=== PATIENT | male | born 1950 | race Caucasian/White ===

== ENCOUNTER 2017-11-14 09:32 | Emergency (ER) | payer MEDICARE, BC ==
[2017-11-14 09:59] VITALS: BP 157/98
[2017-11-14] MEDS ORDERED: Bacitracin Oint 1 GM U/D Packet TOP ONE (10:02)
[2017-11-14] MEDS ORDERED: Lidocaine 1% 30 ML SDV INJECT ONE (10:02)
--- NOTE | 2017-11-14 10:08 | EDM.PDOC ---
ED HPI GENERAL MEDICAL PROBLEM - General Chief Complaint: Skin Complaint Stated Complaint: [id number] FELL ON SIDEWALK CUT ON FOREHEAD Time Seen by Provider: 11/14/17 09:58 Source of Information: Reports: Patient History Limitations: Reports: No Limitations - History of Present Illness INITIAL COMMENTS - FREE TEXT/NARRATIVE: This 67 yo male patient reports to the ED due to a ground level fall. The patient reports that he was walking in the back yard when he caught his foot on uneven ground causing him to fall. The patient reports, as he was falling, he was trying to avoid a pipe sticking up in his yard and landed on his face. The patient reports that he is hard of hearing and forgot his hearing aids at home. The patient reports no loss of consciousness before, during or after the fall. The patient reports some neck "stiffness", but has been moving around without problems. Onset: Today Duration: Minutes: Location: Reports: Face (laceration for left forehead, abrasions to his nose, chin and forehead. ) Quality: Reports: Ache, Dull Severity: Mild Improves with: Reports: None Worsens with: Reports: None Context: Reports: Trauma (ground level fall) Associated Symptoms: Reports: No Other Symptoms Left Face Pain Score (Numeric/FACES): 4 - Related Data Allergies Allergy/AdvReac Type Severity Reaction Status Date / Time ciprofloxacin Allergy Facial Verified 06/21/15 10:23 Swelling Home Meds: Home Meds Loratadine [Claritin] 10 mg PO DAILY PRN 03/29/14 [History] Lisinopril/Hydrochlorothiazide [Lisinopril-Hctz 20-12.5 mg Tab] 1 tab PO DAILY 08/25/14 [History] Past Medical History - Past Health History Medical/Surgical History: Denies Medical/Surgical History (unable to obtain) Social & Family History - Family History Family Medical History: Unobtainable - Tobacco Use Smoking Status *Q: Never Smoker Second Hand Smoke Exposure: No - Alcohol Use Days Per Week of Alcohol Use: 1 Number of Drinks Per Day: 1 Total Drinks Per Week: 1 - Recreational Drug Use Recreational Drug Use: No ED ROS GENERAL - Review of Systems Review Of Systems: ROS reveals no pertinent complaints other than HPI. ED EXAM, SKIN/RASH Exam: See Below Exam Limited By: No Limitations General Appearance: Alert, WD/WN, Mild Distress Eye Exam: Bilateral Eye: EOMI, Normal Inspection, PERRL Ears: Normal External Exam, Normal Canal, Hearing Grossly Normal, Normal TMs Nose: Normal Inspection, Normal Mucosa, No Blood Throat/Mouth: Normal Inspection, Normal Lips, Normal Teeth, Normal Gums, Normal Oropharynx, Normal Voice, No Airway Compromise Neck: Normal Inspection, Supple, Full Range of Motion, Tender Lateral (mild tenderness ) Respiratory/Chest: No Respiratory Distress, Lungs Clear, Normal Breath Sounds, No Accessory Muscle Use, Chest Non-Tender Cardiovascular: Normal Peripheral Pulses, Regular Rate, Rhythm, No Edema, No Gallop, No JVD, No Murmur, No Rub GI/Abdominal: Normal Bowel Sounds (Male) Exam: Deferred Rectal (Males) Exam: Deferred Back Exam: Normal Inspection, Full Range of Motion, NT Extremities: Normal Inspection, Normal Range of Motion, Non-Tender, No Pedal Edema, Normal Capillary Refill Neurological: Alert, Oriented, CN II-XII Intact, Normal Cognition, Normal Gait, Normal Reflexes, No Motor/Sensory Deficits Psychiatric: Normal Affect, Normal Mood Skin: Warm, Dry, Wound/Incision (laceration to left forehead) Location, Skin: Head Characteristics: Linear Lymphatic: No Adenopathy ED SKIN PROCEDURES - Laceration/Wound Repair Left Head Lac/Wound length In cm: 2.5 Appearance: Subcutaneous Distal NVT: Neuro & Vascular Intact Anesthetic Type: Local Local Anesthesia - Lidocaine (Xylocaine): 1% Plain Local Anesthetic Volume: 3cc Skin Prep: Chlorhexidine (Hibiciens), Saline Exploration/Debridement/Repair: Wound Explored, In a Bloodless Field, No Foreign Material Found Closed with: Sutures Suture Size: other (5-0) # of Sutures: 8 Suture Type: Prolene, Interrupted, Simple Sterile Dressing Applied: Nurse Tetanus Status Addressed: Yes Complications: No Course - Vital Signs Last Recorded V/S: Last Vital Signs Temp 36.9 C 11/14/17 09:58 Pulse 65 11/14/17 09:58 Resp 16 11/14/17 09:58 BP 157/98 H 11/14/17 09:58 Pulse Ox 99 11/14/17 09:58 - Orders/Labs/Meds Meds: Medications Discontinued Medications Generic Name Dose Route Start Last Admin Trade Name Freq PRN Reason Stop Dose Admin Bacitracin 1 dose 11/14/17 10:02 Bacitracin Oint 1 Gm TOP 11/14/17 10:03 ONETIME ONE Lidocaine HCl 30 ml 11/14/17 10:02 Xylocaine-Mpf 1% INJECT 11/14/17 10:03 ONETIME ONE Departure - Departure Time of Disposition: 10:32 Disposition: Home, Self-Care 01 Condition: Fair Clinical Impression: Fall from ground level Laceration of forehead Qualifiers: Encounter type: initial encounter Qualified Code(s): S01.81XA - Laceration without foreign body of other part of head, initial encounter - Discharge Information Instructions: Facial Laceration, [id number] Forms: ED Department Discharge Care Plan Goals: The patient was advised of the examination results during the visit. The laceration margins were well approximated during the visit without incident. The patient's remaining wounds were cleaned. The patient should have the sutures removed in 5-7 days. The patient was encouraged to keep the area clean and dry over the next 24 hours. If the patient has any additional symptoms or concerns, the patient should follow-up with his primary care facility or return to the emergency department.
== END 2017-11-14 10:48 | disposition home or self-care (01) ==
LOC: DL.ED 09:32
DX: S01.81XA Laceration without foreign body of other part of head, initial encounter (principal); Z88.1 Allergy status to other antibiotic agents; Z79.899 Other long term (current) drug therapy; W19.XXXA Unspecified fall, initial encounter; Y92.096 Garden or yard of other non-institutional residence as the place of occurrence of the external cause
CPT/HCPCS: 12001; 12011; 99282; 99283

== ENCOUNTER 2020-07-13 09:26 | Emergency (ER) | payer OTHER, MEDICARE, BC ==
[2020-07-13 09:56] VITALS: BP 108/97; PULSE 92
--- NOTE | 2020-07-13 10:48 | CR ---
PROCEDURE INFORMATION: Exam: XR Left Tibia and Fibula Exam date and time: 07/13/2020 10:19 AM Age: 70 years old Clinical indication: Pain; Lower leg; Left; Additional info: Pain and redness TECHNIQUE: Imaging protocol: XR Left tibia and fibula. Views: 2 views. COMPARISON: No relevant prior studies available. FINDINGS: Bones/joints: There is anatomic alignment. There is no acute fracture or dislocation. Mild chronic cortical thickening fibular midshaft and proximal posterior tibial diaphyseal cortex. No focal osseous abnormality. No aggressive osseous process. Joint spaces are preserved. Soft tissues: Lateral subcutaneous edema may represent cellulitis. IMPRESSION: No acute osseous abnormality.
--- NOTE | 2020-07-13 10:52 | EDM.PDOC ---
ED HPI GENERAL MEDICAL PROBLEM - General Chief Complaint: Lower Extremity Injury/Pain Stated Complaint: LEFT LEG INJURY REFERRED BY [facility] Time Seen by Provider: 07/13/20 10:40 Source of Information: Reports: Patient History Limitations: Reports: No Limitations - History of Present Illness INITIAL COMMENTS - FREE TEXT/NARRATIVE: This 70 yo male patient was sent to the ED from the [facility] due to left lateral lower leg pain. The patient reports he missed a step about 1 week ago and has been having increased pain to the lateral lower leg since that time. The patient reports increased swelling as the day progresses and increased stiffness in the morning. Duration: Week(s):, Intermittent Location: Reports: Lower Extremity, Left Quality: Reports: Ache, Dull Severity: Moderate Improves with: Reports: None Worsens with: Reports: None Context: Reports: Activity Associated Symptoms: Reports: No Other Symptoms Left Leg Pain Score (Numeric/FACES): 3 - Related Data Allergies Allergy/AdvReac Type Severity Reaction Status Date / Time ciprofloxacin Allergy Facial Verified 07/13/20 09:55 Swelling Home Meds: Home Meds Loratadine [Claritin] 10 mg PO DAILY PRN 03/29/14 [History] Lisinopril/Hydrochlorothiazide [Lisinopril-Hctz 20-12.5 mg Tab] 1 tab PO DAILY 08/25/14 [History] Past Medical History - Past Health History Medical/Surgical History: Denies Medical/Surgical History HEENT History: Reports: Impaired Vision Cardiovascular History: Reports: Hypertension Genitourinary History: Reports: Prostate Disorder, Renal Calculus - Past Surgical History Respiratory Surgical History: Reports: Other (See Below) Other Respiratory Surgeries/Procedures: chesttubes for collapsed lung Social & Family History - Family History Family Medical History: Unobtainable - Tobacco Use Tobacco Use Status *Q: Former Tobacco User Used Tobacco, but Quit: Yes Month/Year Tobacco Last Used: 07/1969 - Caffeine Use Caffeine Use: Reports: Coffee - Recreational Drug Use Recreational Drug Use: No Review of Systems - Review of Systems Review Of Systems: Comprehensive ROS is negative, except as noted in HPI. ED EXAM, GENERAL - Physical Exam Exam: See Below Exam Limited By: No Limitations General Appearance: Alert, WD/WN, Mild Distress Eye Exam: Bilateral Eye: EOMI, Normal Inspection, PERRL Ears: Normal External Exam, Other (Bilateral hearing aids) Nose: Normal Inspection, Normal Mucosa, No Blood Throat/Mouth: Normal Inspection, Normal Lips, Normal Teeth, Normal Gums, Normal Oropharynx, Normal Voice, No Airway Compromise Head: Atraumatic, Normocephalic Neck: Normal Inspection, Supple, Non-Tender, Full Range of Motion Respiratory/Chest: No Respiratory Distress, Lungs Clear, Normal Breath Sounds, No Accessory Muscle Use, Chest Non-Tender Cardiovascular: Normal Peripheral Pulses, Regular Rate, Rhythm, No Edema, No Gallop, No JVD, No Murmur, No Rub (Male) Exam: Deferred Rectal (Males) Exam: Deferred Extremities: Leg Pain (left lower lateral leg pain with swelling (x-ray does not demonstrate a fracture)) Neurological: Alert Psychiatric: Normal Affect, Normal Mood Skin Exam: Warm, Dry, Intact, Normal Color, No Rash Lymphatic: No Adenopathy Course - Vital Signs Last Recorded V/S: Last Vital Signs Temp 36.2 C 07/13/20 09:53 Pulse 92 07/13/20 09:53 Resp 14 07/13/20 09:53 BP 108/97 H 07/13/20 09:53 Pulse Ox 98 07/13/20 09:53 - Orders/Labs/Meds Orders: Active Orders 24 hr Category Date Time Status Tibia Fibula Lt [CR] Urgent Exams 07/13/20 10:09 Taken Departure - Departure Time of Disposition: 10:50 Disposition: Home, Self-Care 01 Condition: Fair Clinical Impression: Left ankle strain Qualifiers: Encounter type: initial encounter Qualified Code(s): S96.912A - Strain of u nspecified muscle and tendon at ankle and foot level, left foot, initial encounter - Discharge Information *PRESCRIPTION DRUG MONITORING PROGRAM REVIEWED*: Not Applicable *COPY OF PRESCRIPTION DRUG MONITORING REPORT IN PATIENT ESTEE: Not Applicable Instructions: How to Use a Stirrup Ankle Brace, [id number], Ankle Sprain, [id number] Care Plan Goals: The patient was advised of the examination and x-ray results during the visit. The patient was placed in a stir-up ankle brace while in the ED. The patient was encouraged to rest and elevate his extremity over the next week. If the patient has any additional symptoms or concerns, the patient should either return to the emergency department or visit his primary care facility. Sepsis Event Note (ED) - Evaluation Sepsis Screening Result: No Definite Risk - Focused Exam Vital Signs: Vital Signs Temp Pulse Resp BP Pulse Ox 07/13/20 09:53 36.2 C 92 14 108/97 H 98 - My Orders Last 24 Hours: My Active Orders 07/13/20 10:09 Tibia Fibula Lt [CR] Urgent - Assessment/Plan Last 24 Hours: My Active Orders 07/13/20 10:09 Tibia Fibula Lt [CR] Urgent
== END 2020-07-13 11:11 | disposition home or self-care (01) ==
LOC: DL.ED 09:26
DX: S96.912A Strain of unspecified muscle and tendon at ankle and foot level, left foot, initial encounter (principal); I10 Essential (primary) hypertension; Z87.891 Personal history of nicotine dependence; Z79.899 Other long term (current) drug therapy; Z88.1 Allergy status to other antibiotic agents; X50.1XXA Overexertion from prolonged static or awkward postures, initial encounter
CPT/HCPCS: 73590-LT; 99283-25

== ENCOUNTER 2021-03-27 18:57 | Emergency (ER) | payer OTHER, MEDICARE, BC ==
[2021-03-27 19:15] VITALS: PULSE 75
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
[2021-03-27 19:44] VITALS: BP 146/94
[2021-03-27 19:45] LABS: ANION GAP 13.7 mEq/L (7-13)
--- NOTE | 2021-03-27 19:57 | CR ---
PROCEDURE INFORMATION: Exam: XR Chest Exam date and time: 03/27/2021 7:31 PM Age: 70 years old Clinical indication: Chest pain TECHNIQUE: Imaging protocol: XR of the chest. Views: 1 view. COMPARISON: No relevant prior studies available. FINDINGS: Lungs: Clear lungs. Pleural spaces: No pneumothorax. No sizable pleural effusion. Heart/Mediastinum: No cardiomegaly. Bones/joints: Multiple chronic healed rib fractures bilaterally. IMPRESSION: Clear lungs.
[2021-03-27] MEDS ORDERED: Iopamidol 612 MG/ML 100 ML Bottle IVPUSH ONE (20:26)
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
== END 2021-03-27 22:22 | disposition home or self-care (01) ==
LOC: DL.ED 18:57
DX: K80.20 Calculus of gallbladder without cholecystitis without obstruction (principal); I10 Essential (primary) hypertension; Z88.1 Allergy status to other antibiotic agents; Z79.899 Other long term (current) drug therapy
CPT/HCPCS: 36415; 71045; 71260; 74177; 80053; 82150; 83690; 83735; 84484; 85025; 85379; 85610; 93005; 99285-25; Q9967

== ENCOUNTER 2022-07-01 14:57 | Emergency (ER) | payer MEDICARE, BC, OTHER ==
[2022-07-01] MEDS ORDERED: Bacitracin Oint 1 GM U/D Packet TOP ONE (15:08)
[2022-07-01] MEDS ORDERED: Lidocaine 1% 10 ML MDV INJECT ONE (15:08)
[2022-07-01 15:10] VITALS: BP 189/102; PULSE 80
== END 2022-07-01 15:34 | disposition home or self-care (01) ==
LOC: DL.ED 14:57
DX: S61.211A Laceration without foreign body of left index finger without damage to nail, initial encounter (principal); I10 Essential (primary) hypertension; Z88.1 Allergy status to other antibiotic agents; Z79.82 Long term (current) use of aspirin; Z79.899 Other long term (current) drug therapy; W26.8XXA Contact with other sharp object(s), not elsewhere classified, initial encounter
CPT/HCPCS: 12001; 99282

== ENCOUNTER 2024-01-03 19:17 | Emergency (ER) | payer MEDICARE, BC, OTHER ==
[2024-01-03 22:03] VITALS: BP 132/78; PULSE 72
== END 2024-01-03 21:49 | disposition home or self-care (01) ==
LOC: DL.ED 19:17
DX: H10.9 Unspecified conjunctivitis (principal); I10 Essential (primary) hypertension; Z79.82 Long term (current) use of aspirin; Z79.899 Other long term (current) drug therapy; Z88.1 Allergy status to other antibiotic agents
CPT/HCPCS: 99283

== ENCOUNTER 2024-02-14 09:39 | Day surgery (SDC) | payer MEDICARE, BC ==
[2024-02-14] MEDS ORDERED: Acetaminophen 325 MG Tab PO PRN (09:45)
[2024-02-14] MEDS ORDERED: Acetaminophen/Codeine 300-30 MG Tab PO PRN (09:45)
[2024-02-14] MEDS ORDERED: Ondansetron 4 MG/2 ML SDV IVPUSH PRN (09:45)
[2024-02-14] MEDS: Povidone-Iodine 5% Sterile Ophth Soln 30 ML Bottle EYELF ONE ×3 (10:04→11:20)
[2024-02-14] MEDS: Phenylephrine 10% Ophth Soln 5 ML Bot EYELF ONE (10:05)
[2024-02-14] MEDS: Tropicamide 1% Ophth Soln 15 ML Bottle EYELF ONE (10:05)
[2024-02-14] MEDS: Proparacaine 0.5% Ophth Soln 15 ML Bottle EYELF ONE ×3 (10:05→11:20)
[2024-02-14] MEDS: Moxifloxacin 0.5% Ophth Soln 3 ML Bottle EYELF ONE (10:05)
[2024-02-14] MEDS: Timolol Maleate 0.5% Ophth Soln 5 ML Bottle EYELF ONE (10:06)
[2024-02-14] MEDS: Cataract Ophth Solution EYELF ONE (10:06)
[2024-02-14] MEDS: Sodium Chloride 0.9% 10 ML Syringe FLUSH PRN (10:15)
[2024-02-14 10:40] VITALS: PULSE 60
[2024-02-14] MEDS: Vancomycin 500 MG SDV EYELF ONE ×2 (10:42→11:31)
[2024-02-14] MEDS: Lidocaine 1% 30 ML SDV ONE ×2 (10:42→11:31)
[2024-02-14] MEDS: Diclofenac Sodium 0.1% Ophth Soln 5 ML Bottle EYELF ONE ×2 (10:43→11:34)
[2024-02-14] MEDS: Apraclonidine 0.5% Ophth Soln 5 ML Bot EYELF ONE ×2 (10:43→11:34)
[2024-02-14] MEDS: Dexamethasone/Neomycin/Polymyxin B Ophth Oint 3.5 GM Tube EYELF ONE ×2 (10:44→11:35)
[2024-02-14 11:52] VITALS: BP 144/72
== END 2024-02-14 12:20 | disposition home or self-care (01) ==
LOC: DL.SDS 09:39
PROVIDERS: ATTEND Ophthalmology
DX: H25.812 Combined forms of age-related cataract, left eye (principal); I10 Essential (primary) hypertension; R20.0 Anesthesia of skin; M79.675 Pain in left toe(s); Z79.899 Other long term (current) drug therapy; Z79.82 Long term (current) use of aspirin
CPT/HCPCS: A9270-GY; J3370; J3490

== ENCOUNTER 2024-03-06 09:11 | Day surgery (SDC) | payer MEDICARE, BC ==
[2024-03-06] MEDS ORDERED: Acetaminophen/Codeine 300-30 MG Tab PO PRN (09:15)
[2024-03-06] MEDS ORDERED: Ondansetron 4 MG/2 ML SDV IVPUSH PRN (09:15)
[2024-03-06] MEDS ORDERED: Acetaminophen 325 MG Tab PO PRN (09:15)
[2024-03-06] MEDS: Proparacaine 0.5% Ophth Soln 15 ML Bottle EYERT ONE ×2 (09:48→10:13)
[2024-03-06] MEDS: Sodium Chloride 0.9% 10 ML Syringe FLUSH PRN (09:49)
[2024-03-06] MEDS: Moxifloxacin 0.5% Ophth Soln 3 ML Bottle EYERT ONE (09:59)
[2024-03-06] MEDS: Povidone-Iodine 5% Sterile Ophth Soln 30 ML Bottle EYERT ONE ×2 (09:59→10:14)
[2024-03-06] MEDS: Tropicamide 1% Ophth Soln 15 ML Bottle EYERT ONE (10:00)
[2024-03-06] MEDS: Phenylephrine 10% Ophth Soln 5 ML Bot EYERT ONE (10:01)
[2024-03-06] MEDS: Cataract Ophth Solution EYERT ONE (10:01)
[2024-03-06] MEDS: Timolol Maleate 0.5% Ophth Soln 5 ML Bottle EYERT ONE (10:01)
[2024-03-06] MEDS: Lidocaine 1% 30 ML SDV ONE (10:20)
[2024-03-06] MEDS: Vancomycin 500 MG SDV EYERT ONE (10:21)
[2024-03-06] MEDS: Apraclonidine 0.5% Ophth Soln 5 ML Bot EYERT ONE ×2 (10:21→10:32)
[2024-03-06] MEDS: Diclofenac Sodium 0.1% Ophth Soln 5 ML Bottle EYERT ONE ×2 (10:22→10:32)
[2024-03-06] MEDS: Dexamethasone/Neomycin/Polymyxin B Ophth Oint 3.5 GM Tube EYERT ONE ×2 (10:22→10:33)
[2024-03-06 11:09] VITALS: BP 129/83; PULSE 51
== END 2024-03-06 11:13 | disposition home or self-care (01) ==
LOC: DL.SDS 09:11
PROVIDERS: ATTEND Ophthalmology
DX: H25.811 Combined forms of age-related cataract, right eye (principal); I10 Essential (primary) hypertension; R20.0 Anesthesia of skin; Z79.899 Other long term (current) drug therapy; Z79.82 Long term (current) use of aspirin
CPT/HCPCS: A9270-GY; J3370; J3490